=== PATIENT | female | born 1995 | race Caucasian/White ===

== ENCOUNTER 2020-01-31 19:23 | Emergency (ER) | payer MEDICAID ==
[~2020-01-31] VITALS: Ht 162.6 cm; Wt 50.0 kg
[2020-01-31] MEDS ORDERED: DIPHENHYDRAMINE 25MG CAPSULE PO ONE (21:00)
[2020-01-31 21:44] LABS: CLARITY URINE CLOUDY (CLEAR); COLOR URINE DARK YELLOW (YELLOW); KETONES URINE TRACE (NEGATIVE); LEUKOCYTE ESTERASE URINE 1+ (NEGATIVE); NITRITE URINE POSITIVE (NEGATIVE); OCCULT BLOOD URINE 3+ (NEGATIVE); PROTEIN URINE NEGATIVE (NEGATIVE)
[2020-01-31 21:46] LABS: BASOPHILS % 0.6 % (0.0-2.0); EOSINOPHILS % 1.5 % (0.0-5.0); HEMATOCRIT. 34.7 % (36.0-48.0); HEMOGLOBIN. 12.1 g/dL (12.0-16.0); LYMPHOCYTES % 39.3 % (20.0-50.0); MEAN CORPUSCULAR HEMOGLOBIN 29.4 pg (28.0-32.0); MEAN CORPUSCULAR VOLUME 83.9 fL (81.0-99.0); MEAN PLATELET VOLUME 8.3 fl (7.4-10.4); MONOCYTES % 14.3 % (2.0-8.0); NEUTROPHILS % 44.3 % (40.0-76.0); PLATELET 224 x1000/uL (130-400); RED BLOOD CELL COUNT 4.13 mill/uL (4.2-5.4); RED CELL DISTRIBUTION WIDTH 12.9 % (11.6-14.6)
[2020-01-31 21:48] LABS: CHLORIDE 103 mEq/L (98-107)
[2020-01-31 21:57] LABS: B-HCG QUANTITATIVE < 1 mIU/mL (<3)
[2020-01-31 22:11] LABS: *COCAINE SCREEN URINE NEGATIVE (NEGATIVE)
[2020-01-31 22:12] LABS: *BARBITURATES SCREEN URINE NEGATIVE (NEGATIVE); *BENZODIAZEPINES SCREEN URINE NEGATIVE (NEGATIVE); CANNABINOID URINE SCREEN NEGATIVE (NEGATIVE); METHADONE URINE SCREEN NEGATIVE (NEGATIVE); PHENCYCLIDINE URINE SCREEN NEGATIVE (NEGATIVE)
[2020-01-31 22:25] LABS: *AMPHETAMINES SCREEN URINE PRESUMTIVE POSITIVE (NEGATIVE)
[2020-01-31 23:27] VITALS: BP 122/81
[2020-02-03 20:37] LABS: OPIATES URINE SCREEN NEGATIVE (NEGATIVE)
== END 2020-01-31 23:36 | disposition home or self-care (01) ==
LOC: ER 19:23
DX: N39.0 Urinary tract infection, site not specified (principal); N93.9 Abnormal uterine and vaginal bleeding, unspecified; F15.10 Other stimulant abuse, uncomplicated
CPT/HCPCS: 36415; 76830; 76856; 80053; 80305; 81003; 81025; 84702; 85025; 86850; 86900; 99284